=== PATIENT | female | born 1965 | race Caucasian/White ===

== ENCOUNTER 2022-08-16 09:33 | Emergency (ER) | payer OTHER ==
[2022-08-16] MEDS ORDERED: Ondansetron PF 4 MG/2 ML Vial ONE (09:51)
[2022-08-16] MEDS ORDERED: Morphine 4 MG/ML VIAL ONE ×2 (09:51→10:15)
[2022-08-16] MEDS ORDERED: Lactated Ringer's 1,000 ML ONE (09:51)
[2022-08-16] MEDS ORDERED: Morphine 2 MG/ML VIAL ONE (10:53)
[2022-08-16] MEDS ORDERED: HYDROcodone/Acetaminophen 10/325 mg Tablet ONE (11:03)
[2022-08-16] MEDS ORDERED: Ibuprofen 800 MG TAB ONE (11:28)
== END 2022-08-16 11:30 | disposition home or self-care (01) ==
LOC: MADERS 09:33
DX: S52.571A Other intraarticular fracture of lower end of right radius, initial encounter for closed fracture (principal); W18.30XA Fall on same level, unspecified, initial encounter
CPT/HCPCS: 25600; 94760; 96361; 96374; 96375; 96376; J2270; J2272; J2405; J7120